=== PATIENT | female | born 1990 | race Caucasian/White ===

== ENCOUNTER 2018-11-21 16:04 | Day surgery (SDC) | payer BC ==
[~2018-11-21] VITALS: Ht 160 cm; Wt 61.0 kg
[2018-11-21] VITALS (7 sets, daily range): BP systolic 118–126; BP diastolic 70–79; PULSE 48–64; TEMP 97.5–98.2
--- NOTE | 2018-11-21 16:20 | NUR ---
arrived on unit ambulatory to room 330, changing into a gown
[2018-11-21] MEDS ORDERED: PRENATAL MVI PO (16:56)
[2018-11-21] MEDS ORDERED: FLOMAX 0.40.4 MG/CAP PO (16:56)
[2018-11-21] MEDS ORDERED: MOTRIN 200200 MG/TAB PO (16:57)
--- NOTE | 2018-11-21 17:30 | NUR ---
prepped for surgery without incident, denies needs
--- NOTE | 2018-11-21 18:05 | NUR ---
to surgery per bed
--- NOTE | 2018-11-21 18:54 | NUR ---
bedside shift report given to STEPHANIE Jefferson
--- NOTE | 2018-11-21 23:00 | NUR ---
PT WAS ABLE TO EAT, VOID, DRINK AND AMBULATE WITHOUT ISSUE. PT VITALS WNL. NO NOTED N/V/D OR PAIN. EDUCATION PAPERWORK GIVEN TO PT, PAPERS SIGNED, IV REMOVED. NO ISSUES OR CONSERNS VOICED. PT WAS ASSISTED OUT OF FACILITY.
== END 2018-11-21 23:00 | disposition home or self-care (01) ==
LOC: SDCO 16:04 → JCC 16:33 → SDCO 23:00
DX: N20.1 Calculus of ureter (principal); Z79.899 Other long term (current) drug therapy
CPT/HCPCS: OP; C1769; J1100; J1885; J2405; J2704; J3010; Q9967